=== PATIENT | female | born 1985 | race Two or more races ===

== ENCOUNTER → 2020-02-22 | Outpatient (CLI) | payer OTHER | END | disposition home or self-care (01) | LOC: PRENATAL 10:49 | DX: O99.89 Other specified diseases and conditions complicating pregnancy, childbirth and the puerperium (principal); O35.3XX0 Maternal care for (suspected) damage to fetus from viral disease in mother, not applicable or unspecified; O09.512 Supervision of elderly primigravida, second trimester; O09.92 Supervision of high risk pregnancy, unspecified, second trimester; Z36.89 Encounter for other specified antenatal screening ==

== ENCOUNTER → 2020-04-18 | Outpatient (CLI) | payer OTHER | END | disposition home or self-care (01) | LOC: PRENATAL 11:00 | PROVIDERS: ATTEND Specialist | DX: O26.843 Uterine size-date discrepancy, third trimester (principal); O10.013 Pre-existing essential hypertension complicating pregnancy, third trimester; O09.513 Supervision of elderly primigravida, third trimester; O99.89 Other specified diseases and conditions complicating pregnancy, childbirth and the puerperium; O09.93 Supervision of high risk pregnancy, unspecified, third trimester ==

== ENCOUNTER 2020-06-03 08:38 | Inpatient (IN) | payer OTHER ==
[~2020-06-03] VITALS: Ht 157.5 cm; Wt 2.3 kg
[2020-06-03] MEDS ORDERED: PRENATAL TABLE1 EAC1 PO (09:01)
== END 2020-06-05 13:25 | disposition home or self-care (01) | DRG 807 ==
LOC: LDR 08:38 → OB/GYN 08:38
PROVIDERS: ADMIT Specialist; ATTEND Specialist
PROC: 10E0XZZ Delivery of Products of Conception, External Approach (ICD-10-PCS; principal; 2020-06-03)
PROC: 0W8NXZZ Division of Female Perineum, External Approach (ICD-10-PCS; 2020-06-03)
PROC: 4A1HXCZ Monitoring of Products of Conception, Cardiac Rate, External Approach (ICD-10-PCS; 2020-06-03)
DX: O42.913 Preterm premature rupture of membranes, unspecified as to length of time between rupture and onset of labor, third trimester (principal); Z37.0 Single live birth; Z3A.35 35 weeks gestation of pregnancy; O24.420 Gestational diabetes mellitus in childbirth, diet controlled; Z20.828 Contact with and (suspected) exposure to other viral communicable diseases